=== PATIENT | female | born 1995 | race Caucasian/White ===

== ENCOUNTER 2022-04-03 10:51 | Day surgery (SDC) | payer OTHER ==
[~2022-04-03] VITALS: Ht 152.4 cm; Wt 83.5 kg
[2022-04-03] MEDS ORDERED: fentaNYL citrate 0.05 MG/ML VIAL ONE (15:30)
[2022-04-03] MEDS ORDERED: MIDAZOLAM 5 MG/5 ML VIAL ONE (15:30)
[2022-04-03] MEDS ORDERED: MIDAZOLAM 2 MG/2 ML VIAL IVP ONE (16:15)
== END 2022-04-03 16:30 | disposition home or self-care (01) ==
LOC: MOR 10:51 → MMU 10:51 → MOR 16:30
PROVIDERS: ATTEND Internal Medicine Gastroenterology
DX: K21.9 Gastro-esophageal reflux disease without esophagitis (principal); J45.909 Unspecified asthma, uncomplicated; E66.9 Obesity, unspecified; Z87.891 Personal history of nicotine dependence; Z20.822 Contact with and (suspected) exposure to COVID-19; Z80.0 Family history of malignant neoplasm of digestive organs; Z68.35 Body mass index [BMI] 35.0-35.9, adult; Z79.899 Other long term (current) drug therapy
CPT/HCPCS: 36415; 43239; 81025; 86677; 87426; J2250; J3010